=== PATIENT | female | born 1960 | race Caucasian/White ===

== ENCOUNTER → 2019-07-05 | Outpatient (CLI) | payer OTHER | LOC: M.CT 09:01 | DX: Z13.6 Encounter for screening for cardiovascular disorders (principal); E78.00 Pure hypercholesterolemia, unspecified; I25.10 Atherosclerotic heart disease of native coronary artery without angina pectoris ==

== ENCOUNTER → 2019-07-17 | Outpatient (CLI) | payer OTHER ==
--- NOTE | 2019-07-19 14:59 | TST ---
[place] [address] TREADMILL STRESS TEST Name: PRAKASH TORRES Room: [facility]#: [id number] Admission: 07/17/19 Attend Phys: Zion Vo, Discharge: Date of : 58 Date of Service: 07/17/19 1612 Report #: [id number] THIS REPORT FOR: //name// CC: ZION Salinas DATE OF SERVICE: 07/17/2019 EEXERCISE STRESS TEST IINDICATIONS: Exercise stress test was requested in this patient with a history of an abnormal coronary artery calcium score. PROCEDURE: The patient was exercised on a Otis protocol from a pretest heart rate of 76, blood pressure of 124/78. The patient was only able to exercise for 4 minutes 31 seconds, achieving a peak heart rate of 143, which was greater than 85% of maximum predicted heart rate for the patient's age. Peak blood pressure was 149/83. In recovery, the patient had a heart rate of 92, blood pressure of 134/79. The patient denied chest pains with exercise, which was terminated due to fatigue. The patient's resting ECG showed a normal sinus rhythm with no significant ST or T-wave change. There was occasional PVC noted at baseline. With exercise, the patient continued to have occasional PVC including ventricular couplets, ventricular triplets, and short runs of ventricular bigeminy. There was no significant ST or T-wave changes noted with exercise. In recovery, the patient continued to have occasional PVCs including up to 4-beat runs of nonsustained ventricular tachycardia. Again, however, there was no significant ST or T-wave change noted during the recovery. IMPRESSION: 1. Poor exercise tolerance. 2. No chest pain with exercise. 3. No ischemic ST segment changes. 4. Occasional PVC at baseline and during exercise, the patient had up to 4-beat runs of nonsustained ventricular tachycardia including episodes of ventricular bigeminy. Exercise stress test showed no ischemia, ST-segment changes; however, the patient was noted to have episodes of nonsustained ventricular tachycardia. IMPRESSION: 1. Clinical response, nonischemic. 2. ECG response, nonischemic. 3. Borderline exercise stress test for myocardial ischemia and although there were no ST segment changes, the patient was noted to have episodes of nons[place] [address] TREADMILL STRESS TEST Name: PRAKASH TORRES [id number] Admission: 07/17/19 Attend Phys: Zoin Vo, Discharge: Date of : 58 Date of Service: 07/17/19 1612 Report #: [id number] If clinically indicated, we would consider exercise stress test with myocardial perfusion imaging to improve the sensitivity of stress testing to rule out ischemic heart disease. <ELECTRONICALLY SIGNED> By: Carl Cruz MD, FACC 07/19/19 1459 1612 [id number] Carl Cruz MD, FAC /nt
== END ==
LOC: M.CRD 14:34
DX: R93.1 Abnormal findings on diagnostic imaging of heart and coronary circulation (principal)